=== PATIENT | female | born 1990 | race American Indian/Alaskan Native ===

== ENCOUNTER 2018-09-23 09:18 | Inpatient (IN) | payer SELFPAY ==
[2018-09-23] MEDS ORDERED: BRETHINE SUB-Q PRN (10:15)
[2018-09-23] MEDS ORDERED: MINERAL OIL PO PRN (10:15)
[2018-09-23] MEDS ORDERED: XYLOCAINE 2% INFILTRATI ONE (10:15)
[2018-09-23] MEDS ORDERED: STADOL IV PRN (10:15)
[2018-09-23] MEDS ORDERED: BRETHINE IVP PRN (10:15)
[2018-09-23] MEDS ORDERED: NARCAN 0.4 MG/1 ML IV PRN (10:15)
[2018-09-23] MEDS ORDERED: ZOFRAN IV PRN (10:15)
--- NOTE | 2018-09-23 10:24 | History and Physical Report ---
History of Present Illness Date of examination: 09/23/18 Date of admission: 09/23/2018 Chief complaint: My Water broke at 0600 this morning. History of present illness: Patient was incarerated at [facility] this morning when her water broke. Patient was released from skilled nursing en route to hospital. States she received care at [place] with a Dr. Smith (records requested). States her course has been uncomplicated. Past History Past Medical History: blood transfusion (2015 and 2018 following PP Hemorrhages) Past Surgical History: no surgical history Family/Genetic History: hypertension (mother), cancer (PGM: ovarian Ca) Social history: single, smoking (was smoking THC and Cigarettes; stopped in 03/2018) - Obstetrical History Expected Date of Delivery: 10/19/18 Actual Gestation: 36 Week(s) 2 Day(s) : 6 Para: 4 Hx # Term Pregnancies: 3 Number of Pregnancies: 1 Spontaneous Abortions: 2 Number of Living Children: 3 #1 Gender: Female year: 2,011 Method of Delivery: Vaginal Complications: other (states full term delivery; can't remember weight) #2 Gender: Female year: 2,013 Method of Delivery: Vaginal Complications: other (states full term delivery; cant remember weight) #3 Gender: Female year: 2,016 Birthweight: 3.175 kg Method of Delivery: Vaginal Complications: other (states this was a delivery of a 7lb ) #4 Gender: Female year: 2,018 Method of Delivery: Vaginal Complications: other (states her water broke early; delivery; infant did not live) Medications and Allergies Allergies Allergy/AdvReac Type Severity Reaction Status Date / Time apple Allergy Anaphylaxis Verified 09/23/18 09:31 apricot Allergy Anaphylaxis Verified 09/23/18 09:31 bee venom protein (honey bee) Allergy Swelling Verified 09/23/18 09:31 pear Allergy Anaphylaxis Verified 09/23/18 09:31 pistachio nut Allergy Anaphylaxis Verified 09/23/18 09:31 pollen extracts Allergy Unknown Verified 09/23/18 09:31 Active Meds: Active Medications Butorphanol Tartrate (Stadol) 2 mg IV Q2H PRN PRN Reason: Pain , Severe (7-10) Ephedrine Sulfate (Ephedrine Sulfate) 10 mg IV Q2M PRN PRN Reason: Hypotension Ampicillin Sodium (Ampicillin/Ns 1 Gm/50 Ml) 1 gm in 50 mls @ 100 mls/hr IV Q4HR JIMY; Protocol Ampicillin Sodium (Polycillin/Ns 2 Gm/100 Ml) 2 gm in 100 mls @ 100 mls/hr IV ONCE ONE; Protocol Stop: 09/23/18 11:14 Lactated Ringer's (Lactated Ringers) 1,000 mls @ 125 mls/hr IV DIRECT JIMY Oxytocin/Sodium Chloride (Pitocin/Ns 20 Unit/1000ml Drip) 20 units in 1,000 mls @ 125 mls/hr IV DIRECT JIMY Oxytocin/Sodium Chloride (Pitocin/Ns 30 Unit/500ml) 30 units in 500 mls @ 4 mls/hr IV TITR JIMY; Protocol Lidocaine (Xylocaine 2%) 20 ml INFILTRATI ONCE ONE Stop: 09/23/18 10:16 Mineral Oil (Mineral Oil) 30 ml PO QHS PRN PRN Reason: Constipation Naloxone HCl (Narcan 0.4 Mg/1 Ml) 0.1 mg IV Q2MIN PRN PRN Reason: Res Rate </= 8 or 02 SAT < 92% Ondansetron HCl (Zofran) 4 mg IV Q8H PRN PRN Reason: Nausea And Vomiting Terbutaline Sulfate (Brethine) 0.25 mg SUB-Q ONCE PRN PRN Reason: Hyperstimulation/Hypertonicity Terbutaline Sulfate (Brethine) 0.25 mg IVP ONCE PRN PRN Reason: Hyperstimulation/Hypertonicity Review of Systems All systems: negative - Vital Signs Vital signs: Vital Signs Pulse BP 81 127/84 09/23/18 09:21 09/23/18 09:21 Temp Pulse Resp BP Pulse Ox 98.8 F 89 16 125/70 09/23/18 10:00 09/23/18 10:06 09/23/18 10:00 09/23/18 10:06 - Physical Exam Breasts: Positive: normal Cardiovascular: Regular rate Lungs: Positive: Clear to auscultation, Normal air movement Abdomen: Positive: normal appearance, soft, normal bowel sounds Genitourinary (Female): Positive: normal external genitalia, normal perenium Uterus: Positive: enlarged Anus/Rectum: Positive: normal perianal skin - Obstetrical FHR: category 1 Uterine Contraction Monitor Mode: External Cervical Dilatation: 3.5 (leaking a large amount of clear fluid) Uterine Contraction Pattern: Absent Uterine Tone Measurement Phase: Resting Results All other labs normal. Assessment and Plan A: IUP at 36 2/7 Weeks Category I tracing PPROM GBS Unknown P: Admit to L&D per Routine Orders Walk-in Labs GBS Prophylaxis Pitocin Induction Dr. Bradley made aware of Premature Rupture of Membranes
[2018-09-23] MEDS ORDERED: PITOCin/NS 30 UNIT/500ML 30 UNITS/500 ML BAG IV SCH (11:00)
[2018-09-23] MEDS ORDERED: PITOCin/NS 20 UNIT/1000ML DRIP 20 UNITS/1,000 ML BAG IV SCH (11:00)
[2018-09-23] MEDS ORDERED: AMPICILLIN/NS 2 GM/100 ML 2 GM/100 ML BAG IV ONE (11:00)
[2018-09-23] MEDS ORDERED: AMPICILLIN/NS 1 GM/50 ML 1 GM/50 ML BAG IV SCH (11:00)
[2018-09-23] MEDS ORDERED: LACTATED RINGERS 1,000 ML IV SCH (11:00)
[2018-09-23 11:42] LABS: Basophils % (Auto) 0.4 % (0.0-1.8); Eosinophils # (Auto) 0.2 K/mm3 (0.0-0.4); Eosinophils % (Auto) 1.5 % (0.0-4.3); Hemoglobin 9.2 gm/dl (10.1-14.3); Lymphocytes # (Auto) 1.8 K/mm3 (1.2-5.4); Mean Corpuscular HGB Conc 33 % (30-34); Mean Corpuscular Volume 79 fl (79-97); Monocytes # (Auto) 0.4 K/mm3 (0.0-0.8); Monocytes % (Auto) 4.3 % (0.0-7.3); Platelet Count 336 K/mm3 (140-440); Red Blood Count 3.56 M/mm3 (3.65-5.03); Red Cell Distribution Width 16.3 % (13.2-15.2)
[2018-09-23 12:26] LABS: Hepatitis C Virus Antibody Non-Reactive (NonReactive)
[2018-09-23 14:29] LABS: Amphetamine Screen,Urine PRESUMPTIVE NEGATIVE; Benzodiazepines Screen,Urine PRESUMPTIVE NEGATIVE; Cannabinoid Screen,Urine PRESUMPTIVE NEGATIVE; Cocaine Screen,Urine PRESUMPTIVE NEGATIVE; Methadone Screen,Urine PRESUMPTIVE NEGATIVE; Opiate Screen,Urine PRESUMPTIVE NEGATIVE
--- NOTE | 2018-09-23 14:42 | Progress Note ---
Assessment and Plan A: IUP at 36 2/7 Weeks Category I tracing PPROM GBS Unknown P: Continue GBS Prophylaxis Continue Pitocin Induction IV Pain Control Subjective - Subjective Date of service: 09/23/18 Interval history: Patient was incarerated at [facility] this morning when her water broke. Patient was released from correction en route to hospital. States she received care at [place] with a Dr. Smith (records requested). States her course has been uncomplicated. Patient reports: loss of fluid, movement normal, contractions, other (resting IV pain meds; does not plan epidural) Objective - Vital Signs Vital Signs: Vital Signs - 12hr 09/23/18 09/23/18 09/23/18 09:21 09:36 09:52 Temperature Pulse Rate 81 78 74 Respiratory Rate Blood Pressure 127/84 124/83 115/65 09/23/18 09/23/18 09/23/18 10:00 10:06 10:21 Temperature 98.8 F Pulse Rate 89 86 Respiratory 16 Rate Blood Pressure 125/70 124/77 09/23/18 09/23/18 09/23/18 10:36 11:17 12:58 Temperature 97.4 F L Pulse Rate 86 82 Respiratory 18 Rate Blood Pressure 122/79 125/83 09/23/18 09/23/18 13:53 14:24 Temperature Pulse Rate 82 88 Respiratory Rate Blood Pressure 125/82 124/80 - Exam Breasts: normal Cardiovascular: Regular rate Lungs: Clear to auscultation, Normal air movement Abdomen: Present: normal appearance, soft, normal bowel sounds Uterus: Present: normal, firm, fundal height above umbilicus FHR: category 1 Uterine Contraction Monitor Mode: External Cervical Dilatation: 4 (leaking a moderate amount of clear fluid) Cervical Effacement Percentage: 80 station: 2 Uterine Contraction Pattern: Irregular Uterine Tone Measurement Phase: Resting Uterine Contraction Intensity: Moderate Extremities: normal - Labs Labs: Abnormal Labs 09/23/18 11:11 RBC 3.56 L Hgb 9.2 L Hct 28.0 L MCH 26 L RDW 16.3 H Seg Neutrophils % 76.8 H Seg Neutrophils # 8.1 H Laboratory Results - last 24 hr 09/23/18 09/23/18 09/23/18 11:11 11:11 11:11 WBC 10.5 RBC 3.56 L Hgb 9.2 L Hct 28.0 L MCV 79 MCH 26 L MCHC 33 RDW 16.3 H Plt Count 336 Lymph % (Auto) 17.0 [place] % (Auto) 4.3 Eos % (Auto) 1.5 Baso % (Auto) 0.4 Lymph # 1.8 [place] # 0.4 Eos # 0.2 Baso # 0.0 Seg Neutrophils % 76.8 H Seg Neutrophils # 8.1 H Urine Opiates Screen Urine Methadone Screen Ur Barbiturates Screen Ur Phencyclidine Scrn Ur Amphetamines Screen U Benzodiazepines Scrn Urine Cocaine Screen U Marijuana (THC) Screen Drugs of Abuse Note RPR Hep Bs Antigen Hepatitis C Antibody Non-reactive HIV 1&2 Antibody Rapid Non react HIV P24 Antigen Non react Rubella IgG Antibody Immune Blood Type Antibody Screen 09/23/18 09/23/18 09/23/18 11:11 11:11 11:11 WBC RBC Hgb Hct MCV MCH MCHC RDW Plt Count Lymph % (Auto) [place] % (Auto) Eos % (Auto) Baso % (Auto) Lymph # [place] # Eos # Baso # Seg Neutrophils % Seg Neutrophils # Urine Opiates Screen Urine Methadone Screen Ur Barbiturates Screen Ur Phencyclidine Scrn Ur Amphetamines Screen U Benzodiazepines Scrn Urine Cocaine Screen U Marijuana (THC) Screen Drugs of Abuse Note RPR Nonreactive Hep Bs Antigen Non-reactive Hepatitis C Antibody HIV 1&2 Antibody Rapid HIV P24 Antigen Rubella IgG Antibody Blood Type O POSITIVE Antibody Screen Negative 09/23/18 14:00 WBC RBC Hgb Hct MCV MCH MCHC RDW Plt Count Lymph % (Auto) [place] % (Auto) Eos % (Auto) Baso % (Auto) Lymph # [place] # Eos # Baso # Seg Neutrophils % Seg Neutrophils # Urine Opiates Screen Presumptive negative Urine Methadone Screen Presumptive negative Ur Barbiturates Screen Presumptive negative Ur Phencyclidine Scrn Presumptive negative Ur Amphetamines Screen Presumptive negative U Benzodiazepines Scrn Presumptive negative Urine Cocaine Screen Presumptive negative U Marijuana (THC) Screen Presumptive negative Drugs of Abuse Note Disclamer RPR Hep Bs Antigen Hepatitis C Antibody HIV 1&2 Antibody Rapid HIV P24 Antigen Rubella IgG Antibody Blood Type Antibody Screen
[2018-09-23] MEDS ORDERED: CYTOTEC ONE (16:51)
[2018-09-23] MEDS ORDERED: METHERGINE IM ONE ×2 (16:51→16:53)
[2018-09-23] MEDS ORDERED: CYTOTEC PR ONE (16:53)
[2018-09-23] MEDS ORDERED: HEMABATE IM ONE (16:54)
[2018-09-23] MEDS ORDERED: TUCKS PAD TP PRN (17:33)
[2018-09-23] MEDS ORDERED: BENADRYL PO PRN (17:33)
[2018-09-23] MEDS ORDERED: PHENERGAN PR PRN (17:33)
--- NOTE | 2018-09-23 17:47 | Procedure Note ---
OB Delivery Note - Delivery Date of Delivery: 09/23/18 (1645) Surgeon: ANKUR MARTINI Estimated blood loss: other (400) - Vaginal Delivery presentation: vertex Delivery position: OA (she around) Delivery induction: none Delivery monitor: external FHT, external uterine Route of delivery: Delivery placenta: spontaneous Delivery cord: 3 umbilical vessels Episiotomy: none Delivery laceration: none Anesthesia: none Delivery comments: of a live 7'4' female infant over a intact perineum under IV pain control with Apgars of 8 and 9 at 1645 on 09/23/2018. directly to maternal abd/chest, skin to skin contact. Delayed cord clamping and cutting; Cord cut by the Maternal Grandmother. Heavy uterine bleeding prior to delivery of placenta. 1000U of Cytotec placed per rectum. Spontaneous delivery of placenta complete and intact with [place] side presenting at 1653. Uterine bleeding heavy after placenta delivery. Methergine 0.2mcg given IM. Bladder emptied with in and out catheter. Vigorous external uterine massage. Uterine bleeding became scant. Cord blood collected. Placenta to pathology. GBS prophylaxis X 2. - A at 1 minute: 8 at 5 minutes: 9 Infant Gender: Female (7'4)
[2018-09-23] MEDS ORDERED: SODIUM CHLORIDE FLUSH SYRINGE 10 ML IV NR (18:00)
[2018-09-23] MEDS: NORCO 5/325 PO PRN (22:20)
[2018-09-24] MEDS: NORCO 5/325 PO PRN ×2 (04:23→21:59)
[2018-09-24 05:28] LABS: Hematocrit 25.6 % (30.3-42.9); Hemoglobin 8.4 gm/dl (10.1-14.3)
[2018-09-24] MEDS ORDERED: BOOSTRIX IM ONE (06:00)
--- NOTE | 2018-09-24 10:37 | Progress Note ---
Assessment and Plan A: PPD#1 s/p 09/23/18; 36w2d GBS unknown; tx'd x2 breast/bottle feeding Asymptomatic Anemia Recent incarceration; Released in route to hospital Stable P: Routine PP orders Ferrous sulfate 325mg BID InFed 100mg IM x1 dose financial services intern consult Anticipate discharge home 24-48 hrs Subjective - Subjective Date of service: 09/24/18 Principal diagnosis: PPD#1 s/p Interval history: See H&P and delivery note Patient reports: appetite normal, voiding normally, pain well controlled, flatus, ambulating normally, no bowel movement [place]: doing well, other (breast/bottle) Objective - Vital Signs Latest vital signs: Vital Signs Temp Pulse Resp BP BP Pulse Ox 09/24/18 08:30 97.9 F 92 H 24 114/66 97 09/24/18 05:05 98.2 F 09/24/18 05:01 102 H 107/69 98 09/24/18 00:16 122/75 09/24/18 00:00 98.0 F 75 20 122/75 09/23/18 22:20 16 09/23/18 20:00 98.6 F 76 16 133/76 09/23/18 19:02 78 132/92 09/23/18 18:17 91 H 136/67 09/23/18 18:02 80 120/64 09/23/18 17:47 87 130/78 09/23/18 17:32 84 121/78 09/23/18 17:17 81 118/74 09/23/18 17:12 98.1 F 20 09/23/18 17:02 77 138/87 09/23/18 16:49 75 130/86 09/23/18 16:24 86 129/86 09/23/18 16:14 97.3 F L 20 09/23/18 15:55 77 121/82 09/23/18 15:24 81 116/68 09/23/18 14:54 86 117/76 09/23/18 14:24 88 124/80 09/23/18 13:53 82 125/82 09/23/18 12:58 97.4 F L 18 09/23/18 11:17 82 125/83 09/23/18 10:36 86 122/79 Intake and Output 09/23/18 09/24/18 09/24/18 23:59 07:59 15:59 Intake Total 240 240 Output Total 600 Balance -360 240 Intake: Oral 240 240 Output: Urine 600 Void 600 Other: Total, Intake Amount 240 240 Total, Output Amount 600 # Voids Void 1 Estimated Blood Loss 400 - Exam Breasts: Present: normal, Cardiovascular: Present: Regular rate, Normal S1, Normal S2, No murmurs Lungs: Present: Clear to auscultation, Normal air movement Abdomen: Present: normal appearance, soft, normal bowel sounds. Absent: distention Vulva: both: normal Uterus: Present: firm, fundal height at umbilicus Extremities: Present: normal Deep Tendon Reflex Grade: Normal +2 - Labs Labs: Abnormal lab results 09/23/18 09/24/18 Range/Units 11:11 05:05 RBC 3.56 L (3.65-5.03) M/mm3 Hgb 9.2 L 8.4 L (10.1-14.3) gm/dl Hct 28.0 L 25.6 L (30.3-42.9) % MCH 26 L (28-32) pg RDW 16.3 H (13.2-15.2) % Seg Neutrophils % 76.8 H (40.0-70.0) % Seg Neutrophils # 8.1 H (1.8-7.7) K/mm3
[2018-09-24] MEDS: IBUPROFEN PO SCH ×2 (10:55→18:00)
[2018-09-24] MEDS: PRENATAL VITAMIN PO SCH (10:56)
[2018-09-24] MEDS ORDERED: INFED IM ONE (11:41)
[2018-09-24] MEDS: FEOSOL PO SCH (21:59)
[2018-09-25] MEDS: IBUPROFEN PO SCH ×2 (00:56→12:31)
[2018-09-25] MEDS: FEOSOL PO SCH (10:02)
[2018-09-25] MEDS: PRENATAL VITAMIN PO SCH (10:02)
--- NOTE | 2018-09-25 10:07 | Progress Note ---
Assessment and Plan A: PPD#2 s/p 09/23/18; 36w2d GBS unknown; tx'd x2 breast/bottle feeding Asymptomatic Anemia Recent incarceration; Released in route to hospital Stable P: Continue PP orders Ferrous sulfate 325mg BID Discharge home later today if car seat is obtained - Patient Problems (1) (normal spontaneous vaginal delivery) Current Visit: Yes Status: Acute (2) Anemia Current Visit: Yes Status: Acute Qualifiers: Anemia type: iron deficiency Subjective - Subjective Date of service: 09/25/18 Principal diagnosis: PPD#1 s/p Patient reports: appetite normal, voiding normally, pain well controlled, ambulating normally : doing well, other (and breast feeding), bottle feeding Objective - Vital Signs Latest vital signs: Vital Signs Temp Pulse Resp BP BP Pulse Ox 09/25/18 08:32 97.9 F 87 18 81/31 99 09/25/18 00:05 98.1 F 90 20 106/52 97 09/24/18 12:12 98.2 F 87 16 118/72 97 Intake and Output 09/24/18 09/25/18 09/25/18 23:59 07:59 15:59 Intake Total 360 240 360 Balance 360 240 360 Intake: Oral 360 240 360 Other: Total, Intake Amount 240 240 360 # Voids Void 1 1 - Exam Breasts: Present: normal Cardiovascular: Present: Regular rate, Normal S1, Normal S2 Lungs: Present: Clear to auscultation, Normal air movement Abdomen: Present: normal appearance, soft, normal bowel sounds Uterus: Present: normal, firm, fundal height below umbilicus (U-2) Extremities: Present: normal Deep Tendon Reflex Grade: Normal +2
--- NOTE | 2018-09-25 10:17 | Discharge Summary ---
Providers - Providers Date of Admission: 09/23/18 10:42 Date of discharge: 09/25/18 Attending physician: JAYCEE MADISON MD 09/24/18 10:40 Consult to Case Management [CONS] Routine Services Needed at Discharge: Courtesy Clerk Notified:: yes Phone number called:: [phone] Was contact made?: Yes Additional Physician Instructions: Pt incarcerated; released en route to hospital Primary care physician: JAYCEE MADISON MD Hospitalization Delivery: Episiotomy: none Laceration: none Other procedures: none complications: other (Anemia) Discharge diagnosis: delivery (@ 36.2 wks gestation) [place] baby: female Hospital course: See Admission H&P; OB Delivery summery and; OB PP notes Condition at discharge: Good Disposition: DC-01 TO HOME OR SELFCARE - Discharge Diagnoses (1) (normal spontaneous vaginal delivery) Status: Acute (2) Anemia Status: Acute Qualifiers: Anemia type: iron deficiency Plan - Provider Discharge Summary Activity: routine, no sex for 6 weeks, no heavy lifting 4 weeks, no strenuous exercise Diet: routine Instructions: routine (Continue iron supplementation twice daily at home after discharge.) Additional instructions: [] Smoking cessation referral if applicable(refer to patient education folder for contact #) [] Refer to [facility] Booklet Call your doctor immediately for: * Fever > 100.5 * Heavy vaginal bleeding ( >1 pad per hour) * Severe persistent headache * Shortness of breath * Reddened, hot, painful area to leg or breast * Drainage or odor from incision. * Keep incision clean and dry at all times and follow doctor's instructions regarding bathing/showering - Follow up plan Follow up: JAYCEE MADISON MD [Primary Care Provider] - 6 Weeks Pending Studies Ms Gasca may D/C home only after seen and ok'd by social sciences professor and after obtainment of car seat for .
[2018-09-25 16:31] VITALS: BP 105/61
== END 2018-09-25 17:07 | disposition home or self-care (01) | DRG 805 ==
LOC: TRG 09:18 → LD 10:42 → OB 19:30
PROVIDERS: ADMIT Obstetrics & Gynecology; ATTEND Obstetrics & Gynecology
PROC: 10E0XZZ Delivery of Products of Conception, External Approach (ICD-10-PCS; principal; 2018-09-23)
PROC: 3E0234Z Introduction of Serum, Toxoid and Vaccine into Muscle, Percutaneous Approach (ICD-10-PCS; 2018-09-24)
DX: O42.913 Preterm premature rupture of membranes, unspecified as to length of time between rupture and onset of labor, third trimester (principal); O60.14X0 Preterm labor third trimester with preterm delivery third trimester, not applicable or unspecified; Z37.0 Single live birth; O72.1 Other immediate postpartum hemorrhage; Z3A.36 36 weeks gestation of pregnancy; Z82.49 Family history of ischemic heart disease and other diseases of the circulatory system; Z80.41 Family history of malignant neoplasm of ovary; Z23 Encounter for immunization; O90.81 Anemia of the puerperium; D50.9 Iron deficiency anemia, unspecified
CPT/HCPCS: 36415; 80307; 85014; 85018; 85025; 86592; 86706; 86762; 86803; 86850; 86900; 86901; 87806; 88307; 90471; 90715; G0378; J0290; J0595; J1750; J2210; J2590; J7120